=== PATIENT | female | born 1995 | race African-American/Black ===

== ENCOUNTER 2018-02-15 02:04 | Emergency (ER) | payer MEDICAID, OTHER ==
[2018-02-15] MEDS: DERMABOND TOPICAL SKIN ADHESIVE TOP (03:00)
[2018-02-15] MEDS: BUPIVACAINE HCL 0.5% 30 ML VIAL SC (03:00)
== END 2018-02-15 03:36 | disposition home or self-care (01) ==
LOC: M ED 02:04
DX: S01.511A Laceration without foreign body of lip, initial encounter (principal); K08.89 Other specified disorders of teeth and supporting structures; W01.198A Fall on same level from slipping, tripping and stumbling with subsequent striking against other object, initial encounter; Y92.89 Other specified places as the place of occurrence of the external cause
CPT/HCPCS: 12011

== ENCOUNTER 2018-05-23 13:14 | Emergency (ER) | payer MEDICAID ==
[~2018-05-23] VITALS: Ht 162.6 cm; Wt 81.8 kg
[2018-05-23] MEDS ORDERED: cefTRIAXone SOD 250 MG VIAL (J0696) IM ONE (16:15)
[2018-05-23] MEDS ORDERED: LIDOCAINE 1% SDV 5 ML VIAL DILUENT ONE (16:15)
[2018-05-23] MEDS ORDERED: AZITHROMYCIN 250 MG TAB PO ONE (16:15)
[2018-05-23] MEDS ORDERED: METR-201 PO (16:23)
[2018-05-23] MEDS ORDERED: DIFL150T PO (16:23)
[2018-05-23 16:51] VITALS: BP 131/85
[2018-05-23 17:52] LABS: CHLAMYDIA DNA AMPLIFICATION POSITIVE (NEGATIVE); GC DNA AMPLIFICATION NEGATIVE (NEGATIVE)
== END 2018-05-23 16:52 | disposition home or self-care (01) ==
LOC: M ED 13:14
DX: Z20.2 Contact with and (suspected) exposure to infections with a predominantly sexual mode of transmission (principal); N76.0 Acute vaginitis; B37.3 Candidiasis of vulva and vagina
CPT/HCPCS: 81001; 87210; 87491; 87591; 96372; 99283; J0696